=== PATIENT | female | born 1940 | race Caucasian/White ===

== ENCOUNTER 2018-04-19 21:14 | Emergency (ER) | payer MEDICARE, BC ==
[~2018-04-19] VITALS: Ht 165.1 cm; Wt 72.6 kg
[2018-04-19 21:20] VITALS: BP 0/0
[2018-04-19] MEDS ORDERED: CALCIUM CHLOR(10%) 100MG/ML 10ML SYRINGE IV ONE (21:22)
[2018-04-19] MEDS ORDERED: ATROPINE SULF 1 MG/10ml SYR IV ONE (21:22)
[2018-04-19] MEDS ORDERED: SODIUM BICARBONATE 8.4% INJ 50ML SYRINGE IV ONE (21:22)
[2018-04-19] MEDS ORDERED: EPINEPHrine HCL 1 MG/10 ML SYRG IV ONE (21:22)
[2018-04-19] MEDS ORDERED: AMIODARONE HCL (50 MG/ ML) 3 ML VIAL IV ONE (21:22)
[2018-04-19] MEDS ORDERED: DOPamine 1600mCg/ml 400MG/250ml NSorD5 KIT/BAG IV ONE (21:22)
[2018-04-19 21:44] LABS: Hemoglobin 11.6 g/dL (12.2-16.2)
[2018-04-19 21:46] LABS: Hematocrit 37.5 % (36.0-46.0); Mean Corpuscular Hemoglobin 32.8 pg (28.0-32.0); Mean Corpuscular Volume 105.8 fL (80.0-100.0); Platelet Count (auto) 48 10^3/uL (140-450); Red Blood Cells 3.55 10^6/uL (4.0-5.20); Red Cell Distribution Width 19.6 % (11.8-14.3); White Blood Cell 12.9 10^3/uL (4.4-10.8)
[2018-04-19 22:00] LABS: Albumin 1.5 g/dL (3.4-5.0); Calcium 9.9 mg/dL (8.5-10.1); Magnesium 2.5 mg/dL (1.6-2.6); Potassium 5.4 mmol/L (3.5-5.1)
[2018-04-19 22:05] LABS: BUN/Creatinine Ratio 15.2; Bilirubin, Total 0.2 mg/dL (0.2-1.0); Total Protein 3.6 g/dL (6.4-8.2)
[2018-04-19 22:19] LABS: INR 2.08 (0.9-1.15)
[2018-04-19 22:36] LABS: Basophils % (manual) 0 (0.0-2.0); Blast Cells 0; Metamyelocytes % 0; Myelocytes % 0; Promyelocytes % 0; Reactive Lymphocytes 0
[2018-04-19 23:05] LABS: Band Neutrophils % (manual) 2; Eosinophils % (manual) 3 (0-7); Lymphocytes % (manual) 43 (10.0-50.0); Monocytes % (manual) 12 (0-12)
== END 2018-04-20 00:09 | disposition expired ==
LOC: ER 21:21 → EDBD 21:21 → ER 04-20 00:09
DX: I46.9 Cardiac arrest, cause unspecified (principal); I10 Essential (primary) hypertension
CPT/HCPCS: 36415; 36600; 71045; 80053; 82805; 83735; 84484; 85007; 85027; 85379; 85610; 85730; 87070; 87205; 92950; 94761; 99285; J0171; J0282; J1265; 94002